=== PATIENT | female | born 1950 | race Asian ===

== ENCOUNTER 2021-08-20 10:25 | Inpatient (IN) | payer MEDICARE, OTHER ==
[2021-08-20 15:28] VITALS: BMI 25.9
[2021-08-20] MEDS ORDERED: Acetaminophen 325 MG TAB PO PRN (16:03)
[2021-08-20] MEDS ORDERED: Bisacodyl 5 MG TAB PO PRN (16:03)
[2021-08-20] MEDS ORDERED: Senokot S 8.6-50 MG TAB PO PRN (16:03)
[2021-08-20] MEDS ORDERED: Ondansetron ODT 4 MG TAB PO PRN (16:03)
[2021-08-21] MEDS ORDERED: Levothyroxine Sodium 125 MCG TAB PO SCH (06:00)
[2021-08-21 06:15] LABS: #Basophils 0.1 thou/uL (0.0-0.2); #Eosinphils 0.2 thou/uL (0.0-0.7); #Lymphocytes 1.9 thou/uL (1.20-3.40); #Monocytes 0.9 thou/uL (0.11-0.59); #Neutrophils 3.2 thou/uL (1.40-6.50); %Basophils 1.3 % (0.0-1.0); %Lymphocytes 30.5 % (21.0-51.0); %Monocytes 13.6 % (0.0-10.0); %Neutrophils 51.5 % (42.0-75.0); Hemoglobin 13.6 g/dL (12.0-16.0); Mean Corpuscular HGB CONC 31.9 g/dL (32.0-36.0); Mean Corpuscular Hemoglobin 31.3 pg (27.0-31.0); Mean Corpuscular Volume 98.1 fL (78.0-98.0); Mean Platelet Volume 7.1 fL (7.4-10.4); Platelet Count 245 thou/uL (130-400); RBC Distribution Width 12.2 % (11.5-14.5); Red Blood Cell (RBC) Count 4.35 mill/uL (4.20-5.40); White Blood Cell (WBC) Count 6.3 thou/uL (4.8-10.8)
[2021-08-21 06:36] LABS: ALT (SGPT) 12 U/L (8-55); AST (SGOT) 17 U/L (5-34); Albumin 3.6 g/dL (3.4-4.8); Alkaline Phosphatase 68 U/L (40-110); Anion Gap 12 mmol/L (10-20); BUN (Urea Nitrogen) 13 mg/dL (9.8-20.1); Bilirubin, Total 0.3 mg/dL (0.2-1.2); Calc. Creatinine Clearance 65 mL/min (70-130); Calcium 8.9 mg/dL (7.8-10.44); Carbon Dioxide 22 mmol/L (23-31); Chloride 109 mmol/L (98-107); Globulin 2.9 g/dL (2.4-3.5); Glucose 102 mg/dL (83-110); Potassium 4.1 mmol/L (3.5-5.1); Protein, Total 6.5 g/dL (5.8-8.1); Sodium 139 mmol/L (136-145)
[2021-08-21] MEDS ORDERED: Enoxaparin Sodium 40 MG/0.4 ML SYRINGE SC SCH (09:00)
[2021-08-21] MEDS ORDERED: Heparin 10,000 UNITS/ 10 ML VIAL ONE (12:39)
[2021-08-21] MEDS ORDERED: Protamine Sulfate 50 MG/5 ML VIAL ONE (12:39)
[2021-08-21] MEDS ORDERED: Isoproterenol 0.2 MG/1 ML AMP ONE (12:39)
[2021-08-21] MEDS ORDERED: Lidocaine 1% (PF) 30 ML VIAL ONE (12:39)
[2021-08-21] MEDS ORDERED: fentaNYL Citrate/PF 100 MCG/2 ML SYRINGE ONE (13:18)
[2021-08-21] MEDS ORDERED: Midazolam HCl 2 mg/2 ml Vial ONE (13:18)
[2021-08-21] MEDS ORDERED: Ketamine 50 MG/ML (10ML VIAL) ONE (13:19)
[2021-08-21] MEDS ORDERED: Propofol 500 MG/50 ML VIAL ONE (13:19)
[2021-08-21] MEDS ORDERED: Phenylephrine 10 MG/ML VIAL ONE (14:05)
[2021-08-21 16:05] VITALS: BP 123/79; TEMP 97.3
== END 2021-08-21 18:00 | disposition home or self-care (01) | DRG 274 ==
LOC: NEURO 14:55
PROVIDERS: ADMIT Internal Medicine; ATTEND Internal Medicine
PROC: 4A023FZ Measurement of Cardiac Rhythm, Percutaneous Approach (ICD-10-PCS; principal; 2021-08-21)
PROC: 4A0234Z Measurement of Cardiac Electrical Activity, Percutaneous Approach (ICD-10-PCS; 2021-08-21)
DX: I44.7 Left bundle-branch block, unspecified (principal); R55 Syncope and collapse; Z20.822 Contact with and (suspected) exposure to COVID-19; E03.9 Hypothyroidism, unspecified; L30.9 Dermatitis, unspecified; S01.01XA Laceration without foreign body of scalp, initial encounter; X58.XXXA Exposure to other specified factors, initial encounter; Z79.890 Hormone replacement therapy; Z88.2 Allergy status to sulfonamides
CPT/HCPCS: 12001; 36415; 70450; 70553; 71045; 71275; 80048; 80053; 81003; 82550; 83690; 83735; 83880; 84146; 84443; 84484; 85025; 85379; 90471; 90715; 93005; 93010; 93306; 93621; 95816; 95819; 95957; 96360; 96361; 96372; A9579; C1730; C1760; G0378; J1644; J1650; J2001; J2250; J2370; J2704; J2720; J7050; Q9967; U0002